=== PATIENT | female | born 1945 | race Two or more races ===

== ENCOUNTER 2024-05-12 21:40 | Inpatient (IN) | payer OTHER, MEDICAID ==
[~2024-05-12] VITALS: Ht 149.9 cm; Wt 43.8 kg
[2024-05-13] VITALS (8 sets, daily range): BP systolic 104–172; BP diastolic 70–85; PULSE 67–89; RESP 16–20; TEMP 97.6–98; O2SAT 0–100
[2024-05-13] MEDS ORDERED: ONDANSETRON HCL 4 MG/2 ML VIAL IV PRN (02:45)
[2024-05-13] MEDS ORDERED: DOCUSATE SOD 100 MG CAP PO PRN (02:45)
[2024-05-13] MEDS ORDERED: NITROGLYCERIN 0.4 MG SL TAB SL PRN (02:45)
[2024-05-13] MEDS ORDERED: ACETAMINOPHEN 325 MG TAB PO PRN (02:45)
[2024-05-13] MEDS ORDERED: MORPHINE SULFATE INJ 2 MG/ml SYRG IV PRN (02:45)
[2024-05-13] MEDS ORDERED: DEXTROSE (50%) 50ML SYRG IV PRN (03:15)
[2024-05-13] MEDS ORDERED: hydrALAZINE HCL 20 MG/ML VL IV PRN (04:00)
[2024-05-13] MEDS: SODIUM CHLORIDE 0.9% 1,000 ML IV SCH (06:47)
[2024-05-13] MEDS: ACCU-CHEK COMFORT CURVE STRIP VI SCH (06:57)
[2024-05-13] MEDS: InsuLIN REG 1unit/0.01ml Soln (100units/ml) SC SCH (07:00)
[2024-05-13] MEDS: cefTRIAXone 1GM/50ML D5W 50 ML IV SCH (10:47)
[2024-05-13 11:50] LABS: Anion Gap 9 (5-15); Carbon Dioxide 23 mmol/L (20-30); Chloride 104 mmol/L (98-107); Potassium 4.5 mmol/L (3.5-5.1); Sodium 136 mmol/L (136-145)
[2024-05-13 11:51] LABS: Calcium 9.8 mg/dL (8.7-10.4)
[2024-05-13 11:55] LABS: Basophils # (auto) 0 10 ^3/uL (0-0.2); Basophils % (auto) 0.5 % (0.0-2.0); Eosinophils # (auto) 0.1 10 ^3/uL (0-0.8); Eosinophils % (auto) 0.9 % (0.0-7.0); Hematocrit 32.4 % (36.0-46.0); Hemoglobin 10.8 g/dL (12.2-16.2); Lymphocytes # (auto) 3.8 10 ^3/uL (0.4-5.4); Lymphocytes % (auto) 49.9 % (10.0-50.0); Mean Corpuscular Hemoglobin 27.4 pg (28.0-32.0); Mean Corpuscular Hgb Conc. 33.3 g/dL (32.0-36.0); Mean Corpuscular Volume 82.1 fL (80.0-100.0); Monocytes # (auto) 0.4 10 ^3/uL (0-1.3); Monocytes % (auto) 5.6 % (0.0-12.0); Neutrophils # (auto) 3.3 10 ^3/uL (1.6-8.6); Neutrophils % (auto) 43.1 % (37.0-80.0); Platelet Count (auto) 362 10^3/uL (140-450); Red Blood Cells 3.95 10^6/uL (4.0-5.20); Red Cell Distribution Width 15.5 % (11.8-14.3); White Blood Cell 7.7 10^3/uL (4.4-10.8)
[2024-05-13 11:56] LABS: BUN/Creatinine Ratio 15.8 (10.0-20.0); Blood Urea Nitrogen 28 mg/dL (9-23); Glucose 208 mg/dL (74-106)
[2024-05-13] MEDS: amLODIPine BESYLATE 5 MG TAB PO SCH (18:58)
[2024-05-14 01:00] VITALS: BP 136/78; PULSE 83; RESP 18; TEMP 98.3; O2SAT 93
[2024-05-14 05:00] VITALS: BP 142/76; PULSE 72; RESP 18; TEMP 98.3; O2SAT 93
[2024-05-14 05:42] LABS: Chloride 109 mmol/L (98-107); Potassium 3.7 mmol/L (3.5-5.1); Sodium 137 mmol/L (136-145)
[2024-05-14 05:43] LABS: Anion Gap 7 (5-15); Carbon Dioxide 21 mmol/L (20-30)
[2024-05-14 05:44] LABS: Calcium 8.9 mg/dL (8.7-10.4)
[2024-05-14 05:48] LABS: BUN/Creatinine Ratio 19.8 (10.0-20.0); Blood Urea Nitrogen 26 mg/dL (9-23); Glucose 148 mg/dL (74-106)
[2024-05-14 05:52] LABS: White Blood Cell 7.1 10^3/uL (4.4-10.8)
[2024-05-14 05:54] LABS: Hematocrit 31.3 % (36.0-46.0); Hemoglobin 10.4 g/dL (12.2-16.2); Mean Corpuscular Hemoglobin 26.9 pg (28.0-32.0); Mean Corpuscular Hgb Conc. 33.1 g/dL (32.0-36.0); Mean Corpuscular Volume 81.2 fL (80.0-100.0); Platelet Count (auto) 342 10^3/uL (140-450); Red Blood Cells 3.85 10^6/uL (4.0-5.20); Red Cell Distribution Width 15.3 % (11.8-14.3)
[2024-05-14 05:55] LABS: Band Neutrophils % (manual) 0; Blast Cells 0; Metamyelocytes % 0; Myelocytes % 0; Promyelocytes % 0; Reactive Lymphocytes 0
[2024-05-14] MEDS ORDERED: ATOR20TA PO (06:34)
[2024-05-14] MEDS ORDERED: INSU100I76 SC (06:34)
[2024-05-14] MEDS ORDERED: CARV6.2517 PO (06:34)
[2024-05-14] MEDS ORDERED: BLOO-200 XX (06:34)
[2024-05-14 07:55] VITALS: BP 140/85; PULSE 83; RESP 20
[2024-05-14 08:00] VITALS: PULSE 77; RESP 18; O2SAT 93
[2024-05-14 12:05] VITALS: BP 148/74; PULSE 78; RESP 20; TEMP 97.7; O2SAT 97
[2024-05-14 12:24] LABS: Basophils % (manual) 1 (0.0-2.0); Eosinophils % (manual) 1 (0-7); Lymphocytes % (manual) 63 (10.0-50.0); Monocytes % (manual) 4 (0-12); Platelet Estimate Adequate
[2024-05-14] MEDS ORDERED: CIPR-173 PO (12:50)
[2024-05-14 14:36] VITALS: BP 140/85; PULSE 83; RESP 16; TEMP 97.8; O2SAT 95
== END 2024-05-14 16:45 | disposition home or self-care (01) | DRG 689 ==
LOC: EAST 05-13 02:00
PROVIDERS: ADMIT Internal Medicine; ATTEND Nurse Practitioner Family
DX: N39.0 Urinary tract infection, site not specified (principal); N18.6 End stage renal disease; N17.9 Acute kidney failure, unspecified; I12.0 Hypertensive chronic kidney disease with stage 5 chronic kidney disease or end stage renal disease; E86.0 Dehydration; E11.65 Type 2 diabetes mellitus with hyperglycemia; F03.90 Unspecified dementia, unspecified severity, without behavioral disturbance, psychotic disturbance, mood disturbance, and anxiety; E11.22 Type 2 diabetes mellitus with diabetic chronic kidney disease; Z79.899 Other long term (current) drug therapy; Z79.4 Long term (current) use of insulin
CPT/HCPCS: 36415; 80048; 82962; 85007; 85025; 85027; 87040; 87081; 87086; 87493; 97110; 97116; 97163; 97530; G0378; J1815